=== PATIENT | female | born 1985 | race American Indian/Alaskan Native ===

== ENCOUNTER 2018-01-31 16:28 | Emergency (ER) | payer OTHER, SELFPAY ==
[2018-01-31 16:42] VITALS: BP 147/95; PULSE 110; RESP 16; TEMP 36.9; O2SAT 98; BMI 23.6
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
[2018-01-31 19:34] LABS: Bacteria Urine Many (>30); RBC Urine 1-5/HPF (0-5/HPF); Squamous Epithelial Cell Urine 5-10 /HPF; WBC Urine 30-100/HPF (0-5/HPF)
[2018-01-31 19:35] LABS: Culture Indicated Urine Cult Not Indicated; Trichomonas Urine 1-5/HPF (None Seen)
== END 2018-01-31 20:25 | disposition home or self-care (01) ==
PROVIDERS: Emergency Provider Nurse Practitioner Family
DX: M54.9 Dorsalgia, unspecified (principal)
CPT/HCPCS: 72072; 72100; 81003; 81015; 81025; 99282; 99284

== ENCOUNTER 2018-12-30 23:47 | Emergency (ER) | payer OTHER, SELFPAY ==
[2018-12-30 23:55] VITALS: BP 142/79; PULSE 93; RESP 15; TEMP 36.8; O2SAT 99
--- NOTE | 2018-12-31 | ED_ITS ---
HPI - Wound/Laceration General Chief Complaint: Wound/Laceration Stated Complaint: left index finger laceration Time Seen by Provider: 12/30/18 23:55 Source: patient Mode of arrival: Ambulatory Limitations: no limitations History of Present Illness HPI narrative: This is a 33-year-old female comes to the emergency department with complaint of laceration to her left index finger. Patient states that she had a glass table that had cracked several months ago. Today while she was eating dinner it broke in half and flew up hitting her on the finger. And she received a laceration. Patient states she is able to flex and straighten the finger. She states her whole hand felt numb but she thinks that is because she was holding it up above her head. She was little bit tingly earlier. She denies any weakness. she denies any numbness at the distal and. She states her tetanus is up-to-date. She denies any other major medical issues. She does work as a dental hygienist. Related Data Home Medications Medication Instructions Recorded Confirmed No Known Home Medications 01/31/18 01/31/18 Allergies Allergy/AdvReac Type Severity Reaction Status Date / Time No Known Drug Allergies Allergy Verified 01/31/18 16:47 Review of Systems Review of Systems ROS Unobtainable: All systems reviewed & are unremarkable except as noted in HPI and below Musculoskeletal Musculoskeletal: Reports as per HPI, Reports numbness, Denies tingling and Reports other (laceration of index finger) Integumentary/Breasts Skin/Breast: Reports wounds Neurologic Neurologic: Reports numbness and Denies tingling [facility] Social History Smoking Status: Current every day smoker Exam Narrative Exam Narrative: GENERAL: Alert and oriented x three, well-nourished, well- appearing female in mild distress. HEENT: Head normocephalic, atraumatic, EOMI, pupils reactive, face symmetric, moist mucous membranes NECK: Supple, full range of motion EXTREMITIES: Normal range of motion, no clubbing or edema. Neurovascularly intact. patient has a stellate laceration between the middle and proximal joints, it is avulsed with subcutaneous exposure, patient has full range of motion of the finger. She has sensation at the distal end with cap refill less than 2 seconds. She does not have any other bony injury appreciated. No other lacerations noted. NEUROLOGICAL: Cranial nerves II through XII grossly intact. Moving all extremities SKIN: Warm, dry, no petechiae, no rashes or lesions other than described above. Initial Vital Signs Initial Vital Signs: Vital Signs Temperature 98.2 F 12/30/18 23:55 Pulse Rate 93 H 12/30/18 23:55 Respiratory Rate 15 12/30/18 23:55 Blood Pressure 142/79 H 12/30/18 23:55 Pulse Oximetry 99 12/30/18 23:55 Procedures Laceration Repair Laceration 1: Site: hand (finger) Side (If applicable): left (2nd) Description: stellate, flap and irregular Depth: simple, single layer Local Anesthetic: lidocaine 1% Amount of anesthesia used (mL): 3.5 Pre-repair: wound explored, irrigated extensively and deep structures intact Skin layer closed with: nylon Size (cm): 4-0 Number of sutures: 7 Technique: simple, interrupted Course Orders Ordered: ED Orders 12/31/18 00:01 XR finger LT min 2V Stat Discontinued Medications Lidocaine/Sodium Bicarbonate (Buffered Lidocaine 10 Ml Syr) 10 ml INJ NOW ONE Stop: 12/31/18 00:16 Last Admin: 12/31/18 00:33 Dose: 10 ml Documented by: MMCMURRAY Vital Signs Vital signs: Vital Signs - 8 hr 12/30/18 23:55 Temperature 98.2 F Pulse Rate 93 H Respiratory Rate 15 Blood Pressure 142/79 H Pulse Oximetry 99 Discharge Plan Departure Patient Disposition: Home Clinical Impression: Finger laceration Discharge Date/Time: 12/31/18 01:31 Instructions: DI for Laceration Repair -- Finger Activity Restrictions/Additional Instructions: You may take ibuprofen and/or Tylenol as needed for pain. Wound Care: Keep wound(s) clean and dry. Wash daily with soap and water only. Do not use over the counter products (alcohol or peroxide)on the wounds unless instructed by a physician. If wound condition worsens (increased/expanding redness, developing fluid bliste rs, or worsening pain), either contact your doctor for an urgent re-assessment , or return to the Emergency Department. Return to the Emergency Department for any new or worsening symptoms. Return to the ED, urgent care, or vist a primary care doctor for removal or suture or mickie in 7-10 days. Return if fever greater than 100.4 Fahrenheit, increased swelling, increasing pain or worsening symptoms such as increased discharge or spreading redness. new numbness, weakness, loss of sensation or other new or concerning symptoms. Prescriptions: No Action No Known Home Medications RF: 0
--- NOTE | 2018-12-31 00:01 | DI.RAD.S_ITS ---
PROCEDURE: XR FINGER LT MIN 2V INDICATIONS: laceration to 2nd digit TECHNIQUE: AP hand, 2 views of the second finger(s) acquired. COMPARISON: None. FINDINGS: Bones: No fractures or dislocations. No suspicious bony lesions. Soft tissues: No suspicious soft tissue calcifications. No radiopaque foreign body. IMPRESSION: No acute osseous abnormality. Dictated by: Homer Olmedo M.D. on 12/31/2018 at 7:49 Approved by: Homer Olmedo M.D. on 12/31/2018 at 7:50
[2018-12-31] MEDS: LIDO 1%/SOD BICARB 8.4% (10ML) 10 ML SYRINGE INJ (00:33)
--- NOTE | 2018-12-31 01:00 | PC.NURSE ---
Pt has laceration to left index finger from hand accidentally going through broken glass table, bleeding controlled and rom intact. 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
--- NOTE | 2018-12-31 01:41 | PC.NURSE ---
Laceration to left index finger from glass table, bleeding controlled, rom intact. 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
== END 2018-12-31 01:31 | disposition home or self-care (01) ==
PROVIDERS: Emergency Provider Emergency Medicine
DX: S61.211A Laceration without foreign body of left index finger without damage to nail, initial encounter (principal)
CPT/HCPCS: 12002; 73140; 99283